=== PATIENT | male | born 1980 | race Caucasian/White ===

== ENCOUNTER 2021-12-30 17:12 | Emergency (ER) | payer MEDICAID ==
[~2021-12-30] VITALS: Ht 180.3 cm; Wt 100.0 kg
[2021-12-30 17:15] VITALS: BP 128/87
[2021-12-30] MEDS ORDERED: ipratropium/albuterol 3ml nebule NEB ONE (17:20)
[2021-12-30] MEDS ORDERED: normal saline 1000ML IV soln IVB ONE (17:20)
[2021-12-30] MEDS ORDERED: methylPREDNISolone sod succ 125mg/2ml vial IV ONE (17:20)
[2021-12-30] MEDS ORDERED: albuterol 2.5 MG/3 ML nebule CONTNEB PRN (17:20)
[2021-12-30] MEDS ORDERED: albuterol 2.5 MG/3 ML nebule ONE (17:28)
[2021-12-30] MEDS ORDERED: predniSONE 20 mg tablet PO ONE (17:45)
--- NOTE | 2021-12-30 18:05 | NUR ---
Patient refused IV treatment, fluids and medications. MD bermeo.
[2021-12-30] MEDS ORDERED: ALBU6.7H9 INH (18:55)
[2021-12-30] MEDS ORDERED: PRED20TA PO (18:55)
== END 2021-12-30 19:10 | disposition home or self-care (01) ==
LOC: ER 17:14
DX: J45.901 Unspecified asthma with (acute) exacerbation (principal); R06.03 Acute respiratory distress; F17.200 Nicotine dependence, unspecified, uncomplicated; Z79.899 Other long term (current) drug therapy
CPT/HCPCS: 71045; 94640; 99285; J7030; J7512; 94760; 99283; A7015